=== PATIENT | female | born 1975 | race Caucasian/White ===

== ENCOUNTER 2017-11-07 22:04 | Emergency (ER) | payer MEDICAID ==
[~2017-11-07] VITALS: Ht 154.9 cm; Wt 108.9 kg
[2017-11-07 23:15] LABS: Urine Bacteria MOD /hpf (None Seen); Urine Blood TRACE /uL (Negative); Urine Specific Gravity 1.008 (1.001-1.035); Urine WBC 4 /hpf (0 - 5)
[2017-11-08 00:15] LABS: Basophils # (auto) 0 uL; Basophils % (auto) 0.3 % (0.0-2.0); Eosinophils # (auto) 0.1 uL; Eosinophils % (auto) 1.5 % (0.0-7.0); Hematocrit 42.1 % (36.0-46.0); Hemoglobin 14.3 g/dL (12.2-16.2); Lymphocytes # (auto) 1.7 uL; Lymphocytes % (auto) 17.8 % (10.0-50.0); Mean Corpuscular Hemoglobin 30.6 pg (28.0-32.0); Mean Corpuscular Volume 89.9 fL (80.0-100.0); Monocytes # (auto) 0.9 uL; Monocytes % (auto) 9.1 % (0.0-12.0); Neutrophils # (auto) 6.8 uL; Neutrophils % (auto) 71.3 % (37.0-80.0); Platelet Count (auto) 260 10^3/uL (140-450); Red Blood Cells 4.68 10^6/uL (4.0-5.20); Red Cell Distribution Width 14.6 % (11.8-14.3); White Blood Cell 9.6 10^3/uL (4.4-10.8)
[2017-11-08 00:28] LABS: INR 1.03 (0.9-1.15); Partial Thromboplastin Time 25.8 sec (22.64-33.71); Prothrombin Time 11.2 sec (9.37-12.3)
[2017-11-08 00:34] LABS: Albumin 3.7 g/dL (3.4-5.0); Anion Gap 8 (5-15); Blood Urea Nitrogen 9 mg/dL (7-18); Calcium 8.3 mg/dL (8.5-10.1); Carbon Dioxide 24 mmol/L (21-32); Chloride 103 mmol/L (98-107); Glucose 96 mg/dL (74-106); Magnesium 2.2 mg/dL (1.6-2.6); Potassium 3.7 mmol/L (3.5-5.1); Sodium 135 mmol/L (136-145)
[2017-11-08 00:36] LABS: BUN/Creatinine Ratio 12.2; GFR African American 111 mL/min; GFR Non-African American 92 mL/min
[2017-11-08 00:41] LABS: Alanine Aminotransferase 17 U/L (13-56); Alkaline Phosphatase 86 U/L (45-117); Aspartate Aminotransferase 10 U/L (15-37); Bilirubin, Total 0.7 mg/dL (0.2-1.0); Total Protein 8.2 g/dL (6.4-8.2)
[2017-11-08] MEDS ORDERED: IBUPROFEN 600 MG TAB PO ONE (05:15)
[2017-11-08] MEDS ORDERED: PROMETHAZINE HCL 25 MG/ML 1ML IV ONE (09:00)
[2017-11-08] MEDS ORDERED: KETOROLAC TROMETH 30 MG/ML 1ML VIAL IV ONE (09:00)
[2017-11-08 15:22] VITALS: BP 101/62
== END 2017-11-08 15:14 | disposition home or self-care (01) ==
LOC: ER 22:04
DX: R07.89 Other chest pain (principal); R05 Cough; M47.816 Spondylosis without myelopathy or radiculopathy, lumbar region
CPT/HCPCS: 36415; 71046; 72131; 80053; 81001; 81025; 83735; 84484; 85025; 85379; 85610; 85730; 93005; 96374; 96375; 99285; J1885; J2550

== ENCOUNTER 2018-05-22 15:30 | Observation (INO) | payer OTHER ==
[~2018-05-22] VITALS: Ht 154.9 cm; Wt 112.0 kg
[2018-05-22] MEDS ORDERED: SODIUM CHLORIDE 0.9% 1,000 ML IVB ONE (16:25)
[2018-05-22] MEDS ORDERED: PROMETHAZINE HCL 25 MG/ML 1ML IV PRN (16:30)
[2018-05-22 16:42] LABS: Basophils # (auto) 0 uL; Basophils % (auto) 0.2 % (0.0-2.0); Eosinophils # (auto) 0.1 uL; Eosinophils % (auto) 0.9 % (0.0-7.0); Hematocrit 42.3 % (36.0-46.0); Hemoglobin 14.5 g/dL (12.2-16.2); Lymphocytes # (auto) 0.9 uL; Lymphocytes % (auto) 11.7 % (10.0-50.0); Mean Corpuscular Hemoglobin 31.2 pg (28.0-32.0); Mean Corpuscular Hgb Conc. 34.4 g/dL (32.0-36.0); Mean Corpuscular Volume 90.6 fL (80.0-100.0); Monocytes # (auto) 0.5 uL; Monocytes % (auto) 6.3 % (0.0-12.0); Neutrophils # (auto) 6.5 uL; Neutrophils % (auto) 80.9 % (37.0-80.0); Platelet Count (auto) 246 10^3/uL (140-450); Red Blood Cells 4.67 10^6/uL (4.0-5.20); Red Cell Distribution Width 14.7 % (11.8-14.3)
[2018-05-22 16:59] LABS: Albumin 3.7 g/dL (3.4-5.0); Calcium 8.3 mg/dL (8.5-10.1); Potassium 3.9 mmol/L (3.5-5.1)
[2018-05-22 17:01] LABS: BUN/Creatinine Ratio 14.6
[2018-05-22 17:04] LABS: Bilirubin, Total 0.3 mg/dL (0.2-1.0); Total Protein 8.1 g/dL (6.4-8.2)
[2018-05-22] MEDS ORDERED: MORPHINE SULF INJ 2 MG/ML SYRINGE 1ML IV ONE ×2 (17:45→20:30)
[2018-05-22] MEDS ORDERED: cefTRIAXone 1GM/10ml IVPUSH 10 ML IV ONE (20:15)
[2018-05-22] MEDS ORDERED: ONDANSETRON HCL 4 MG/2 ML VIAL IV ONE (20:30)
[2018-05-22 21:35] LABS: Urine Bacteria NONE SEEN /hpf (None Seen); Urine Blood Negative /uL (Negative); Urine Specific Gravity 1.021 (1.001-1.035); Urine WBC 2 /hpf (0 - 5)
[2018-05-22] MEDS ORDERED: SODIUM CHLORIDE 0.9% 1,000 ML IV SCH (22:45)
[2018-05-22] MEDS ORDERED: HYDROcodone-ACET 5/325MG TAB PO PRN (22:45)
[2018-05-22] MEDS ORDERED: MORPHINE SULF INJ 2 MG/ML SYRINGE 1ML IV PRN (22:45)
[2018-05-22] MEDS ORDERED: ONDANSETRON HCL 4 MG/2 ML VIAL IV PRN (22:45)
[2018-05-22] MEDS ORDERED: ACETAMINOPHEN 500 MG TAB PO PRN (22:45)
[2018-05-23 01:15] VITALS: BP 112/65
== END 2018-05-23 01:28 | disposition home or self-care (01) | DRG 446 ==
LOC: ER 15:33 → OVERFLOW 15:34 → ER 05-23 01:28
PROVIDERS: ADMIT Family Medicine; ATTEND Family Medicine
DX: K80.20 Calculus of gallbladder without cholecystitis without obstruction (principal); R10.31 Right lower quadrant pain; R10.13 Epigastric pain; R11.2 Nausea with vomiting, unspecified; Z82.49 Family history of ischemic heart disease and other diseases of the circulatory system; Z83.3 Family history of diabetes mellitus; Z88.0 Allergy status to penicillin
CPT/HCPCS: 36415; 74176; 76705; 80053; 81001; 81025; 82150; 83690; 83735; 85025; 96361; 96374; 99285; G0378; J0696; J2270; J2405; J2550; J7030

== ENCOUNTER 2019-01-01 16:06 | Emergency (ER) | payer OTHER ==
[~2019-01-01] VITALS: Ht 154.9 cm; Wt 119.7 kg
[2019-01-01] MEDS ORDERED: VANCOMYCIN 1GM/250ML 250 ML IV ONE (16:45)
[2019-01-01] MEDS ORDERED: SODIUM CHLORIDE 0.9% 500 ML IV ONE (16:45)
[2019-01-01] MEDS ORDERED: KETOROLAC TROMETH 30 MG/ML 1ML VIAL IV ONE (16:45)
[2019-01-01] MEDS ORDERED: SODIUM CHLORIDE 0.9% 1,000 ML IV ONE ×2 (16:45→23:00)
[2019-01-01 17:36] LABS: Basophils # (auto) 0.1 uL; Basophils % (auto) 0.6 % (0.0-2.0); Eosinophils # (auto) 0.1 uL; Eosinophils % (auto) 1.2 % (0.0-7.0); Hematocrit 44.8 % (36.0-46.0); Lymphocytes # (auto) 1.1 uL; Lymphocytes % (auto) 12.1 % (10.0-50.0); Mean Corpuscular Hgb Conc. 33.6 g/dL (32.0-36.0); Mean Corpuscular Volume 89.4 fL (80.0-100.0); Monocytes # (auto) 0.4 uL; Monocytes % (auto) 4.8 % (0.0-12.0); Neutrophils # (auto) 7.6 uL; Neutrophils % (auto) 81.3 % (37.0-80.0); Nucleated Red Blood Cells % 0.3 %; Platelet Count (auto) 264 10^3/uL (140-450); Red Blood Cells 5.01 10^6/uL (4.0-5.20); Red Cell Distribution Width 15.6 % (11.8-14.3); White Blood Cell 9.3 10^3/uL (4.4-10.8)
[2019-01-01 17:48] LABS: Alanine Aminotransferase 28 U/L (13-56); Albumin 3.6 g/dL (3.4-5.0); Anion Gap 12 (5-15); Aspartate Aminotransferase 22 U/L (15-37); Blood Urea Nitrogen 7 mg/dL (7-18); Calcium 8.9 mg/dL (8.5-10.1); Carbon Dioxide 21 mmol/L (21-32); Chloride 105 mmol/L (98-107); GFR African American 92 mL/min; GFR Non-African American 76 mL/min; Glucose 98 mg/dL (74-106); Potassium 4.1 mmol/L (3.5-5.1); Sodium 138 mmol/L (136-145)
[2019-01-01 17:50] LABS: Alkaline Phosphatase 110 U/L (45-117); Bilirubin, Total 0.6 mg/dL (0.2-1.0); Total Protein 8.4 g/dL (6.4-8.2)
[2019-01-01 18:49] LABS: Urine Bacteria FEW /hpf (None Seen); Urine Blood Negative /uL (Negative); Urine Specific Gravity 1.018 (1.001-1.035); Urine WBC 2 /hpf (0 - 5)
--- NOTE | 2019-01-01 19:00 | NUR ---
Midline Placement: Patient educated on need for midline placement. All risks and benefits explained and all questions and concerns addresses prior to procedure. 18g/10cm midline inserted via BASILIC vein using Ultrasound. Sterile technique utilized. Blood return obtained from SINGLE lumen and flushed easily with NS using proper technique. Midline secured with saline lock; biodisc and occlusive dressing applied. Primary RN notified. Midline lot # [id number].
[2019-01-01] MEDS ORDERED: fentaNYL CITRATE 100 MCG/2 ML VL IV ONE (19:30)
[2019-01-01] MEDS ORDERED: FUROSEMIDE 40 MG/4 ML VIAL IV ONE (21:00)
[2019-01-01] MEDS ORDERED: methylPREDNISolone SOD SUCC 125 MG/2 ML VL IV ONE (22:30)
[2019-01-02 00:33] LABS: Alcohol, Urine < 3.0 mg/dL (0-5); Amphetamine Screen, Urine NEGATIVE (NEGATIVE); Barbiturate Scree,Urine NEGATIVE (NEGATIVE); Benzodiazephine Screen, Urine NEGATIVE (NEGATIVE); Cannabinoid Screen, Urine NEGATIVE (NEGATIVE); Cocaine Screen, Urine NEGATIVE (NEGATIVE); Opiate Scree,Urine NEGATIVE (NEGATIVE); Phencyclidine Screen, Urine NEGATIVE (NEGATIVE)
[2019-01-02] MEDS ORDERED: methylPREDNISolone SOD SUCC 125 MG/2 ML VL IV ONE ×3 (02:45→05:15)
[2019-01-02] MEDS ORDERED: VANCOMYCIN 1GM/250ML 250 ML IV ONE ×3 (05:15→07:00)
[2019-01-02] MEDS ORDERED: HYDROcodone-ACET 7.5/325MG TAB PO ONE (07:00)
[2019-01-02 09:47] VITALS: BP 92/52
[2019-01-03 11:26] LABS: Hepatitis A Ab IgM Negative; Hepatitis B Core IgM Negative
[2019-01-03 11:27] LABS: Hepatitis B Surface Antigen Negative (Negative); Hepatitis C Antibody Negative (Negative)
== END 2019-01-02 10:59 | disposition home or self-care (01) ==
LOC: ER 16:10
DX: L03.116 Cellulitis of left lower limb (principal); L03.115 Cellulitis of right lower limb
CPT/HCPCS: 36415; 71045; 80053; 80074; 80307; 81001; 83615; 83735; 84443; 84702; 85025; 85379; 85652; 86038; 86644; 86645; 93005; 93970; 96365; 96366; 96375; 96376; 99284; J1885; J1940; J2930; J3010; J3370; 96367

== ENCOUNTER 2019-09-05 19:52 | Emergency (ER) | payer SELFPAY ==
[~2019-09-05] VITALS: Ht 154.9 cm; Wt 126.1 kg
[2019-09-05 20:20] VITALS: BP 106/60
[2019-09-05] MEDS ORDERED: IPRATROPIUM BROM 0.5 MG/2.5ML INH SOL NEB ONE (21:30)
[2019-09-05] MEDS ORDERED: guaiFENesin-DM 100/10mg/5ml SYR PO ONE (21:30)
[2019-09-05] MEDS ORDERED: ALBUTEROL SULF 2.5 MG/0.5ML(0.5%) NEB SOLN NEB ONE (21:30)
[2019-09-05] MEDS ORDERED: LORATADINE 10 MG TAB PO ONE (21:30)
[2019-09-05] MEDS ORDERED: methylPREDNISolone SOD SUCC 125 MG/2 ML VL IM ONE (21:30)
== END 2019-09-05 22:52 | disposition home or self-care (01) ==
LOC: ER 19:54
DX: J06.9 Acute upper respiratory infection, unspecified (principal); B34.9 Viral infection, unspecified
CPT/HCPCS: 71045; 87070; 87804; 87880; 94640; 96372; 99284; J2930; J7611; J7644

== ENCOUNTER 2019-09-28 08:27 | Emergency (ER) | payer OTHER ==
[~2019-09-28] VITALS: Ht 154.9 cm; Wt 117.9 kg
[2019-09-28 08:44] VITALS: BP 117/71
[2019-09-28 08:54] LABS: Urine WBC None Seen /hpf (0 - 5)
[2019-09-28 09:00] LABS: Urine Bacteria FEW /hpf (None Seen); Urine Blood Negative /uL (Negative)
[2019-09-28] MEDS ORDERED: IPRATROPIUM BROM 0.5 MG/2.5ML INH SOL NEB ONE (09:15)
[2019-09-28] MEDS ORDERED: ALBUTEROL SULF 2.5 MG/0.5ML(0.5%) NEB SOLN NEB ONE (09:15)
== END 2019-09-28 10:04 | disposition home or self-care (01) ==
LOC: ER 08:29
DX: J20.9 Acute bronchitis, unspecified (principal)
CPT/HCPCS: 71046; 81001; 81025; 94640; 99284; J7611; J7644